=== PATIENT | female | born 1980 | race Caucasian/White ===

== ENCOUNTER → 2016-08-07 | Day surgery (SDC) | payer BC ==
[2016-07-25 13:36] VITALS: Ht 172.7 cm; Wt 81.8 kg
[~2016-08-07] VITALS: Ht 172.7 cm; Wt 81.8 kg
[~2016-08-07] MED LIST: ATROPINE SULFATE 0.1 MG/ML 5ML SYR IV PRN; CALCTAB5 PO; CEFAZOLIN 1000MG/55 ML D5W IV SCH; CEFAZOLIN 2000 MG/60 ML D5W 60 ML IV SCH; DEXAMETHASONE SOD INJ 4 MG/ML VIAL ONE; DPPRI400 IM; EpHEDrine SULFATE INJ 50 MG/ML AMP IV PRN; EpINEphrine INJ 1MG/ML AMP 1 MG/ML AMP ONE; FENTANYL CITRATE INJ 50 MCG/1 ML 2 ML VIAL ONE; HYDROmorphone INJ 1 MG/ML SYR IV PRN; KETO10TA PO; KETOROLAC TROMETHAMINE 30 MG/ML VIAL ONE; LACTATED RINGER'S 1000ML 1,000 ML IV SCH; LIDOCAINE HCL 2% 2 ML VIAL (20MG/ML) ONE; MIDAZOLAM HCL 1 MG/ML 2ML VIAL ONE; MULT-506 PO; OMEG10007 PO; ONDANSETRON INJ 2 MG/ML 2 ML VIAL IV PRN; ONDANSETRON INJ 2 MG/ML 2 ML VIAL ONE; OXYC-57 PO; OXYCODONE/ACETAMINOPHEN 5-325 TAB PO PRN; PROPOFOL IV EMULSION 10 MG/ML 20 ML VIAL IV ONE; ROPIVACAINE 0.5% 5 MG/ML 30 ML VIAL ONE; SODIUM CHLORIDE 0.9% 1000ML 1,000 ML IV SCH; VENL75TA4 PO
--- NOTE | 2016-08-07 06:58 | History & Physical Bridge - [place] ---
H&P Re-Evaluation Bridge Note: I have examined the patient, reviewed the History & Physical and in the interval since the performance of the History & Physical I have noted the following changes of clinical significance: No changes noted
--- NOTE | 2016-08-07 07:51 | [facility] Post Operative Brief Note ---
Immediate Operative Summary Operative Date Aug 07, 2016. Pre-Operative Diagnosis Right Knee Acute Medial Meniscus Tear + Patellofemoral pain Post-Operative Diagnosis Same Procedure(s) Performed Right Knee Arthroscopy With Partial Medial Meniscectomy, Chondroplasty Surgeon Dr. Shweta Hutson Patient Portal Concierge Surgeon(s) Michael Beyer PA-C Estimated Blood Loss Minimal Findings Medial Meniscus Tear + DJD Specimens None Anesthesia General Complication(s) None Disposition Recovery Room / PACU
--- NOTE | 2016-08-07 07:56 | Discharge Instructions-SurgCtr ---
Discharge Instructions Date of Service Aug 07, 2016. Visit Reason for Visit: Right Knee Acute Medial Meniscal Tear, Pain Discharge Discharge Diagnosis / Problem: RIGHT KNEE MEDIAL MENISCUS TEAR, PATELLOFEMORAL PAIN Discharge Goals Goal(s): Decrease discomfort, Improve function, Therapeutic intervention Activity Recommendations Activity Limitations: per Instructions/Follow-up section Weightbearing Status: Right weightbearing (as tolerated) Anesthesia . Post Anesthesia Instructions: If you have had General Anesthesia or IV Sedation: * Do not drive today. * Resume driving when surgeon permits. * Do not make important decisions or sign legal documents today. * Call surgeon for: 1. Temperature elevations greater than 101 degrees F. 2. Uncontrollable pain. 3. Excessive bleeding. 4. Persistent nausea and vomiting. 5. Medication intolerance (nausea, vomiting or rash). * For nausea and vomiting use only clear liquids such as: tea, soda, bouillon until nausea subsides, then gradually increase diet as tolerated. * If you have any concerns or questions, call your surgeon's office. If physician is unavailable and it is an emergency, call 911 or go to the nearest emergency room. . Instructions / Follow-Up Instructions / Follow-Up MEDICATIONS: * Resume previous medications unless instructed otherwise by your surgeon. * Always take pain medication on a full stomach or with food to avoid upset stomach. * Do not drink alcohol or drive while taking narcotics. * Ibuprofen or Tylenol may be taken if narcotic not needed. NO IBUPROFEN WHILE TAKING TORADOL SPECIAL CARE INSTRUCTIONS: __ None _X_ Keep extremity elevated and iced x 48 hours; apply ice 20-30 minutes 8-10 times/day. May remove at night. __ Crutches __ May discard when able __ Brace/Post-op shoe __ 24 hrs/day __ Remove at night _X_ Dressing __ Maintain until seen in office, may shower with plastic over site _X_ Remove dressings in 24-48 hours and then may shower _X_ Cover incisions with band-aids after showering __ Do not remove steri-strips Call physician if chills or temperature rises above 102 degrees or pain unrelieved by prescribed pain medications. Office [phone] FOLLOW UP IN 2 WEEKS Diet Recommendations Home Diet: resume previous diet Procedures Procedures Performed: Right Knee Arthroscopy With Partial Medial Meniscectomy, Chondroplasty Pending Studies Studies pending at discharge: no Medical Emergencies . Who to Call and When: Medical Emergencies: If at any time you feel your situation is an emergency, please call 911 immediately. . Non-Emergent Contact Non-Emergency issues call your: Primary Care Provider, Surgeon . . "Provider Documentation" section prepared by Eliceo Beyer.
[2016-08-07] MEDS: FENTANYL CITRATE INJ 50 MCG/1 ML 2 ML VIAL IV PRN ×4 (08:02→08:18)
[2016-08-07 08:31] VITALS: TEMP 37.3
--- NOTE | 2016-08-07 08:40 | OPERATIVE REPORT ---
DATE OF OPERATION: 08/07/2016 SURGEON: Jay Hutson MD. WEB MARKETING ASSISTANT: JONAS Ceron. PREOPERATIVE DIAGNOSES: 1. Right knee degenerative medial meniscus tear. 2. Right knee patellofemoral pain. POSTOPERATIVE DIAGNOSES: 1. Right knee degenerative medial meniscus tear. 2. 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 3. Right knee patellofemoral pain. PROCEDURE PERFORMED: 1. Right knee exam under anesthesia. 2. Right knee diagnostic arthroscopy. 3. Right knee arthroscopic partial medial meniscectomy. 4. Right knee chondroplasty medial femoral condyle. 5. Right knee chondroplasty of the patella. COMPLICATIONS: None. ESTIMATED BLOOD LOSS: Minimal. TOURNIQUET TIME: 21 minutes at 300 mmHg. ANESTHESIA: General. SPECIMENS: None. OPERATIVE INDICATIONS: The patient is a 35-year-old fairly active female who has had a several-year history of right knee pain, discomfort and intermittent mechanical symptoms. This all started a couple years ago. She had an MRI about 2 years ago which revealed a medial meniscus tear. She was at that time and could not undergo surgery. She continued to have persistent problems. She had both anterior knee pain as well as medial meniscus symptoms. She elected to proceed with operative treatment. OPERATIVE FINDINGS: Examination under anesthesia of the right knee revealed just a small knee effusion. Range of motion was full extension to 135 degrees of flexion. She had no instability. Dima was negative for mechanical symptoms. No clinical instability. ARTHROSCOPIC FINDINGS: Arthroscopic findings revealed just a small knee effusion. The undersurface of the patella revealed fairly extensive grade 3 changes. The trochlea was remarkably well preserved. In the intercondylar notch, the ACL and PCL were intact. In the medial compartment, there was a complex degenerative tear of the posterior horn of the medial meniscus. She did have some focal grade 2 changes of the medial femoral condyle. In the lateral compartment, the meniscus was intact. She had some mild age-related changes to the cartilage. OPERATIVE PROCEDURE: The patient was taken to the operating room, identified and placed on the operating table in supine position. All contact areas were appropriately padded. IV antibiotics were provided by anesthesia team. A general anesthetic was implemented by anesthesia team. Right thigh tourniquet was then placed. The right knee was then examined under anesthesia with findings as described above. The right leg was then prepped and draped in the usual sterile fashion. The right leg was elevated and exsanguinated with Esmarch and tourniquet was placed at 300 mmHg. Routine right knee arthroscopy was then performed through typical anteromedial and anterolateral portals. Superolateral outflow portal was established for outflow. Attention was first drawn to the medial meniscus. With the use of motorized and hand controlled instruments, a partial medial meniscectomy was then performed. I resected this back to stable tissue. She did have quite a bit of intrasubstance degeneration of the meniscus itself. I then used the shaver to debride some of the loose cartilage at the end of the medial femoral condyle. Attention was then drawn to the patellofemoral joint. I did have to resect some of the fat pad in order to adequately visualize the patellofemoral joint. I then used the shaver to debride the loose cartilage on the undersurface of the patella. Once this was complete, the arthroscopic instruments were placed throughout the knee joint. All extraneous debris was removed. The arthroscopic instruments were then removed from the joint and the portals were closed with 3-0 Prolene suture in a simple fashion. The knee was then injected with 30 mL of 0.5% ropivacaine with epinephrine and 30 mg of Toradol. Sterile dressing with Xeroform, 4 x 4, sterile cast padding and Venkat bandage were applied. The tourniquet was then let down for a tourniquet time of 21 minutes. The patient then brought out of general anesthesia and transferred to the recovery room in stable condition. The patient tolerated the procedure well with no complications. All needle and sponge counts were correct at the end of the operation. I attest to the content of the Intraoperative Record and any orders documented therein. Any exceptio ns are noted below.
--- NOTE | 2016-08-07 09:11 | Anesthesia Progress Nt - [facility] ---
Anesthesia Post Op Note Date & Time Aug 07, 2016 at 09:10 Vital Signs Pain Intensity: 4.0 Vital Signs Past 12 Hours Date Time Temp Pulse Resp B/P Pulse Ox O2 Delivery O2 Flow Rate FiO2 08/07/16 08:32 72 14 08/07/16 08:32 72 14 96 08/07/16 08:31 115/74 08/07/16 08:31 37.3 78 12 115/74 95 Room Air 08/07/16 08:27 71 7 96 08/07/16 08:27 72 7 08/07/16 08:26 112/77 08/07/16 08:22 81 11 94 08/07/16 08:22 83 11 08/07/16 08:21 121/80 08/07/16 08:17 89 15 08/07/16 08:17 87 15 96 08/07/16 08:16 137/93 08/07/16 08:15 90 16 08/07/16 08:15 89 16 96 08/07/16 08:11 127/86 08/07/16 08:10 100 22 98 08/07/16 08:10 98 22 08/07/16 08:06 144/99 08/07/16 08:05 108 17 98 08/07/16 08:05 107 17 08/07/16 08:01 114/83 08/07/16 08:00 93 20 100 08/07/16 08:00 94 20 08/07/16 07:56 135/86 08/07/16 07:55 96 13 08/07/16 07:55 95 13 100 08/07/16 07:51 119/94 08/07/16 07:50 36.5 90 12 119/94 99 Diffusion Mask 6 08/07/16 06:31 36.7 83 16 112/75 100 Room Air Notes Mental Status: alert / awake / arousable, participated in evaluation Pt Amnestic to Procedure: Yes Nausea / Vomiting: adequately controlled Pain: adequately controlled Airway Patency, RR, SpO2: stable & adequate BP & HR: stable & adequate Hydration State: stable & adequate Anesthetic Complications: no major complications apparent
[2016-08-07 09:20] VITALS: BP 105/69; PULSE 65; O2SAT 100
== END | disposition home or self-care (01) ==
LOC: X.SURG 06:14
PROVIDERS: ATTEND Orthopaedic Surgery Sports Medicine
DX: M23.231 Derangement of other medial meniscus due to old tear or injury, right knee (principal); M22.2X1 Patellofemoral disorders, right knee; F32.9 Major depressive disorder, single episode, unspecified; Z82.49 Family history of ischemic heart disease and other diseases of the circulatory system; Z83.3 Family history of diabetes mellitus; Z80.1 Family history of malignant neoplasm of trachea, bronchus and lung

== ENCOUNTER → 2017-03-21 | Outpatient (CLI) | payer BC ==
[~2017-03-21] MED LIST changes: -ATROPINE SULFATE 0.1 MG/ML 5ML SYR IV PRN; -CEFAZOLIN 1000MG/55 ML D5W IV SCH; -CEFAZOLIN 2000 MG/60 ML D5W 60 ML IV SCH; -DEXAMETHASONE SOD INJ 4 MG/ML VIAL ONE; -EpHEDrine SULFATE INJ 50 MG/ML AMP IV PRN; -EpINEphrine INJ 1MG/ML AMP 1 MG/ML AMP ONE; -FENTANYL CITRATE INJ 50 MCG/1 ML 2 ML VIAL ONE; -HYDROmorphone INJ 1 MG/ML SYR IV PRN; -KETO10TA PO; -KETOROLAC TROMETHAMINE 30 MG/ML VIAL ONE; -LACTATED RINGER'S 1000ML 1,000 ML IV SCH; -LIDOCAINE HCL 2% 2 ML VIAL (20MG/ML) ONE; -MIDAZOLAM HCL 1 MG/ML 2ML VIAL ONE; -ONDANSETRON INJ 2 MG/ML 2 ML VIAL IV PRN; -ONDANSETRON INJ 2 MG/ML 2 ML VIAL ONE; -OXYC-57 PO; -OXYCODONE/ACETAMINOPHEN 5-325 TAB PO PRN; -PROPOFOL IV EMULSION 10 MG/ML 20 ML VIAL IV ONE; -ROPIVACAINE 0.5% 5 MG/ML 30 ML VIAL ONE; -SODIUM CHLORIDE 0.9% 1000ML 1,000 ML IV SCH
--- NOTE | 2017-03-21 12:06 | DIAGNOSTIC IMAGING REPORT ---
MRI OF THE LEFT KNEE CLINICAL HISTORY: Left knee pain. Running injury. COMPARISON STUDY: Radiographs of left knee dated 02/17/2017. TECHNIQUE: MRI of the left knee was performed utilizing proton density, T1, and T2-weighted sequences in the axial, sagittal, coronal planes. IV contrast was not administered for this examination. FINDINGS: Menisci: There is abnormal signal identified within the posterior horn of the medial meniscus comment is seen on coronal image #19 and sagittal image #4. This could represent mucoid degeneration versus an oblique tear. Tear is favored, as this likely extends to the articular surface. The lateral meniscus is intact. Ligaments: The anterior and posterior cruciate ligaments are intact. The medial and lateral collateral ligaments are within normal limits. Extensor mechanism: The extensor mechanism is intact. Hoffa's fat pad is normal in appearance. Articular cartilage and bone: There is focal greater than 50% thinning of the articular cartilage along the weightbearing surface in the medial compartment. Only mild thinning is seen throughout the remainder of the articular cartilage and medial compartment. There is less than 50% thinning of the articular cartilage at the patellar apex and the medial patellar facet. Articular cartilage in the lateral compartment is preserved. Normal marrow signal is preserved of the visualized bony structures. Joint effusion: There is a small joint effusion. Soft tissues: The musculature surrounding the knee joint is normal in bulk and signal intensity. IMPRESSION: 1. Mucoid degeneration versus oblique tear involving the posterior horn of the medial meniscus. Tear is favored. 2. The cruciate ligaments, the collateral ligaments, and the lateral meniscus are preserved. 3. Small joint effusion. 4. Mild arthritic change as above, greatest along the weightbearing surface in the medial compartment. Electronically signed by: Jorge Chan M.D. 03/21/2017 12:05 PM Dictated Date/Time: 03/21/2017 11:59 AM
== END | disposition home or self-care (01) ==
LOC: C.MRI 10:51
PROVIDERS: ATTEND Orthopaedic Surgery Sports Medicine
DX: S83.242A Other tear of medial meniscus, current injury, left knee, initial encounter (principal); X58.XXXA Exposure to other specified factors, initial encounter